=== PATIENT | female | born 2005 | race Caucasian/White ===

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

== ENCOUNTER → 2025-05-23 | Outpatient (CLI) | payer BC | LOC: LAB SHORT 11:30 → LAB 11:30 | DX: R21 Rash and other nonspecific skin eruption (principal) | CPT/HCPCS: 87070; 87205 ==